=== PATIENT | female | born 1990 | race Hispanic/Latino ===

== ENCOUNTER 2018-11-03 14:51 | Emergency (ER) | payer SELFPAY ==
--- NOTE | 2018-11-03 15:37 | RAD ---
EXAM: Chest PA and lateral: HISTORY: Right-sided chest pain. COMPARISON: 04/09/2015 FINDINGS: Heart: Normal Aorta: Unremarkable Pulmonary vessels: Normal Costophrenic angles: Costophrenic angles are clear. Lungs: No consolidation or masses. Pneumothorax: No pneumothorax Osseous structures: No osseous abnormalities IMPRESSION: No acute cardiopulmonary process.
[2018-11-03 16:18] LABS: #Basophils 0.1 thou/uL (0.0-0.2); #Eosinphils 0.3 thou/uL (0.0-0.7); #Lymphocytes 1.7 thou/uL (1.20-3.40); #Monocytes 0.6 thou/uL (0.11-0.59); #Neutrophils 5.2 thou/uL (1.40-6.50); %Basophils 1.1 % (0.0-1.0); %Eosinophils 3.7 % (0.0-10.0); %Lymphocytes 21.6 % (21.0-51.0); %Monocytes 7.7 % (0.0-10.0); Hemoglobin 13.8 g/dL (12.0-16.0); Mean Corpuscular HGB CONC 32.3 g/dL (32.0-36.0); Mean Corpuscular Hemoglobin 26.5 pg (27.0-31.0); Mean Corpuscular Volume 81.9 fL (78.0-98.0); Mean Platelet Volume 8.6 fL (7.4-10.4); Platelet Count 215 thou/uL (130-400); RBC Distribution Width 12.2 % (11.5-14.5); Red Blood Cell (RBC) Count 5.22 mill/uL (4.20-5.40); White Blood Cell (WBC) Count 7.8 thou/uL (4.8-10.8)
[2018-11-03 16:42] LABS: ALT (SGPT) 22 U/L (8-55); AST (SGOT) 18 U/L (5-34); Albumin 3.9 g/dL (3.5-5.0); Alkaline Phosphatase 86 U/L (40-150); Anion Gap 12 mmol/L (10-20); BUN (Urea Nitrogen) 13 mg/dL (7.0-18.7); Bilirubin, Total 0.2 mg/dL (0.2-1.2); Calc. Creatinine Clearance 0 mL/min (70-130); Calcium 9.1 mg/dL (7.8-10.44); Carbon Dioxide 22 mmol/L (22-29); Chloride 106 mmol/L (98-107); Estimated GFR-MDRD Greater than 90; Globulin 3.7 g/dL (2.4-3.5); Glucose 88 mg/dL (70-105); Lipase 26 U/L (8-78); Potassium 3.7 mmol/L (3.5-5.1); Protein, Total 7.6 g/dL (6.0-8.3); Sodium 136 mmol/L (136-145)
--- NOTE | 2018-11-03 17:53 | ULT ---
RIGHT UPPER QUADRANT ULTRASOUND: Date: 11/03/18 HISTORY: Pain. COMPARISON: None. TECHNIQUE: Utilizing a multihertz transducer, sonographic imaging of the right upper quadrant is performed in th e longitudinal and transverse plane. FINDINGS: Pancreas is obscured by bowel gas. Visualized hepatic parenchyma has a normal echotexture. No hepatic masses or intrahepatic biliary dilatation. The contour of the hepatic margin is maintained. Right he patic lobe measures 16.1 cm. Main portal vein is patent. Appropriate direction of flow. No sonographic evidence of cholelithiasis, gallbladder wall thickening, or pericholecystic fluid. Neg ative Escalante's sign. Right kidney has a normal cortical echotexture. No hydronephrosis. Right kidney measures 4.7 x 11.1 x 5.2 cm. Common bile duct diameter is 0.3 cm. IMPRESSION: No sonographic evidence of cholelithiasis or cholecystitis. POS: OFF
[2018-11-03] MEDS ORDERED: Ketorolac Tromethamine 60 MG/2 ML VIAL ONE (18:06)
== END 2018-11-03 19:00 | disposition home or self-care (01) ==
LOC: ERS 14:51
DX: N61.1 Abscess of the breast and nipple (principal)
CPT/HCPCS: 36415; 71046; 76705; 80053; 83690; 85025; 96372; J1885

== ENCOUNTER 2021-03-09 16:07 | Emergency (ER) | payer SELFPAY ==
[2021-03-09] MEDS ORDERED: Morphine 4 MG/ML VIAL ONE (17:32)
[2021-03-09] MEDS ORDERED: Ketorolac Tromethamine 30 MG/ML VIAL ONE (17:32)
[2021-03-09 17:38] LABS: #Eosinphils 0.2 thou/uL (0.0-0.7); #Monocytes 0.7 thou/uL (0.11-0.59); #Neutrophils 6.2 thou/uL (1.40-6.50); %Basophils 0.3 % (0.0-1.0); %Eosinophils 2.2 % (0.0-10.0); %Lymphocytes 21.7 % (21.0-51.0); %Monocytes 8.1 % (0.0-10.0); %Neutrophils 67.7 % (42.0-75.0); Hemoglobin 12.7 g/dL (12.0-16.0); Mean Corpuscular HGB CONC 33.8 g/dL (32.0-36.0); Mean Corpuscular Hemoglobin 27.5 pg (27.0-31.0); Mean Corpuscular Volume 81.3 fL (78.0-98.0); Mean Platelet Volume 8.4 fL (7.4-10.4); Platelet Count 214 thou/uL (130-400); RBC Distribution Width 12.6 % (11.5-14.5); Red Blood Cell (RBC) Count 4.63 mill/uL (4.20-5.40); White Blood Cell (WBC) Count 9.1 thou/uL (4.8-10.8)
[2021-03-09 17:59] LABS: ALT (SGPT) 25 U/L (8-55); AST (SGOT) 21 U/L (5-34); Albumin 3.7 g/dL (3.5-5.0); Alkaline Phosphatase 85 U/L (40-110); Anion Gap 10 mmol/L (10-20); BUN (Urea Nitrogen) 10 mg/dL (7.0-18.7); Bilirubin, Total 0.3 mg/dL (0.2-1.2); Calc. Creatinine Clearance 0 mL/min (70-130); Calcium 8.9 mg/dL (7.8-10.44); Carbon Dioxide 22 mmol/L (22-29); Chloride 107 mmol/L (98-107); Globulin 3.7 g/dL (2.4-3.5); Glucose 99 mg/dL (70-105); Lipase 21 U/L (8-78); Potassium 3.5 mmol/L (3.5-5.1); Protein, Total 7.4 g/dL (6.0-8.3); Sodium 135 mmol/L (136-145)
[2021-03-09 18:15] LABS: Bilirubin Negative (Negative); Blood, Urine Negative (Negative); Clarity Clear (Clear); Glucose, Urine (Dipstick) Normal (Negative); Ketone, Urine Negative (Negative); Leukocyte Negative Leu/uL (Negative); Nitrite Negative (Negative); Protein, Urine (Dipstick) Negative (Neg-Trace); Specific Gravity, Urine 1.022 (1.002-1.036); Urobilinogen Normal mg/dL (Less than 2); pH, Urine 6.5 (5.0-9.0)
== END 2021-03-09 19:37 | disposition home or self-care (01) ==
LOC: ERS 16:07
DX: R07.89 Other chest pain (principal)
CPT/HCPCS: 36415; 71045; 80053; 81003; 83690; 84484; 85025; 93005; 96372; J1885; J2270

== ENCOUNTER 2025-06-25 14:28 | Emergency (ER) | payer OTHER ==
[~2025-06-25 14:28] MED LIST: Iopamidol-370 76% 500 ML MDV (1 ML CHARGE) ONE
[2025-06-25 15:30] LABS: Pregnancy Test - Urine (BHCG) Negative (Negative); Pregu Control Background? CLEAR/WHITE (CLR/WHITE); Pregu Control Bar Appear? YES (CONTROL BAR)
[2025-06-25 15:34] LABS: CAUTI Indications for Culture Pelvic or flank pain; Glucose, Urine (Dipstick) Normal (Negative); Leukocyte Negative Leu/uL (Negative); Protein, Urine (Dipstick) Negative (Neg-Trace); RBC/HPF None Seen HPF (0-3); Specific Gravity, Urine 1.023 (1.002-1.036); WBC/HPF 0-3 HPF (0-3)
[2025-06-25 15:36] LABS: Bacteria/HPF 1+ HPF (None Seen)
[2025-06-25 15:37] LABS: Urine Culture Reflex No No
[2025-06-25 16:29] LABS: #Basophils Less than 0.03 10x3/uL (0.0-0.2); #Eosinophils 0.18 10x3/uL (0.0-0.7); #Monocytes 0.68 10x3/uL (0.11-0.59); #Neutrophils 4.61 10x3/uL (1.40-6.50); %Basophils 0.3 % (0.0-1.0); %Eosinophils 2.7 % (0.0-10.0); %Lymphocytes 18.7 % (21.0-51.0); %Monocytes 10.0 % (0.0-10.0); %Neutrophils 68.0 % (42.0-75.0); Hematocrit 39.8 % (36.0-47.0); Hemoglobin 13.3 g/dL (12.0-16.0); Mean Corpuscular Hemoglobin 27.3 pg (27.0-31.0); Mean Corpuscular Volume 81.6 fL (78.0-98.0); Platelet Count 193 10x3/uL (130-400); Red Blood Cell (RBC) Count 4.88 mill/uL (4.20-5.40); White Blood Cell (WBC) Count 6.78 10x3/uL (4.8-10.8)
[2025-06-25 16:44] LABS: ALT (SGPT) 8 U/L (Less than 34); AST (SGOT) 20 U/L (11-34); Albumin 3.9 g/dL (3.1-4.5); Alkaline Phosphatase 66 U/L (40-110); Anion Gap 13 mmol/L (10-20); BUN (Urea Nitrogen) 7 mg/dL (7.0-18.7); Bilirubin, Total 0.3 mg/dL (0.3-1.2); Calc. Creatinine Clearance 0 mL/min (70-130); Calcium 8.9 mg/dL (7.8-10.44); Carbon Dioxide 23 mmol/L (22-29); Chloride 109 mmol/L (98-107); Globulin 3.5 g/dL (2.4-3.5); Glucose 81 mg/dL (70-105); Lipase 24 U/L (8-78); Potassium 3.6 mmol/L (3.5-5.1); Sodium 141 mmol/L (136-145)
[2025-06-25] MEDS ORDERED: Famotidine 20 MG TAB ONE (16:58)
== END 2025-06-25 17:45 | disposition home or self-care (01) ==
LOC: ERS 14:28
DX: R10.9 Unspecified abdominal pain (principal)
CPT/HCPCS: 71046; 74177; 76705; 80053; 81001; 81025; 83690; 85025; 93005; 96374; Q9967